=== PATIENT | male | born 1980 | race Caucasian/White ===

== ENCOUNTER 2017-12-23 08:59 | Emergency (ER) | payer SELFPAY ==
[2017-12-23] MEDS ORDERED: hydrOXYzine 25 MG TAB ONE (09:26)
[2017-12-23] MEDS ORDERED: methylPREDNISolone Sod Succ/PF 125 MG/2 ML VIAL ONE (09:26)
[2017-12-23] MEDS ORDERED: Famotidine 20 MG TAB ONE (09:27)
== END 2017-12-23 09:40 | disposition home or self-care (01) ==
LOC: BURERS 08:59
DX: L25.9 Unspecified contact dermatitis, unspecified cause (principal); F17.210 Nicotine dependence, cigarettes, uncomplicated
CPT/HCPCS: 99282; J2930

== ENCOUNTER 2018-09-27 08:40 | Emergency (ER) | payer BC, OTHER ==
[2018-09-27 10:37] LABS: Bilirubin Negative (Negative); Blood, Urine Negative (Negative); Clarity Clear (Clear); Glucose, Urine (Dipstick) Negative (Negative); Leukocyte Negative (Negative); Nitrite Negative (Negative); Protein, Urine (Dipstick) Trace mg/dL (Neg-Trace)
[2018-09-30 09:27] LABS: Chlam.trachomatis by PCR,Urine Not Detected (NotDetected)
== END 2018-09-27 10:34 | disposition home or self-care (01) ==
LOC: BURERS 08:40
DX: N45.1 Epididymitis (principal); F17.210 Nicotine dependence, cigarettes, uncomplicated
CPT/HCPCS: 81003; 87491; 87591; 99284